=== PATIENT | male | born 1990 | race African-American/Black ===

== ENCOUNTER 2017-07-16 18:10 | Emergency (ER) | payer OTHER ==
[2017-07-16 18:24] VITALS: BP 153/76
--- NOTE | 2017-07-16 18:48 | XRAY Preliminary Report ---
Exam: XR FINGER(S) RT IMPRESSION: Normal fourth digit radiography. [facility] SITE ID: [id number]
--- NOTE | 2017-07-16 18:50 | ED Physician Documentation ---
PD HPI UPPER EXT INJURY - Stated complaint Stated Complaint: R RING FINGER INJ - Chief complaint Chief Complaint: Ext Problem - History obtained from History obtained from: Patient - History of Present Illness Location: Finger (right ring finger) Type of injury: Twist (jammed from ball) Timing - details: Abrupt onset, Still present Associated symptoms: Swelling, Discolored (some bruising around base of finger) . No: Weakness, Numbness Similar symptoms before: Has not had sx before Recently seen: Not recently seen Review of Systems Skin: denies: Abrasion (s), Laceration (s) Neurologic: denies: Focal weakness, Numbness PD PAST MEDICAL HISTORY - Past Medical History Past Medical History: No Musculoskeletal: None - Past Surgical History Past Surgical History: No - Present Medications Home Medications: Ambulatory Orders Medication Instructions Recorded Confirmed No Known Home Medications [No 07/16/17 07/16/17 Known Home Medications] - Allergies Allergies/Adverse Reactions: Allergies Allergy/AdvReac Type Severity Reaction Status Date / Time No Known Drug Allergies Allergy Verified 07/16/17 18:24 - Social History Does the pt smoke?: No Smoking Status: Never smoker Does the pt drink ETOH?: No Does the pt have substance abuse?: No - Immunizations Immunizations are current?: Yes - POLST Patient has POLST: No PD ED PE NORMAL - Vitals Vital signs reviewed: Yes - General General: Alert and oriented X 3, No acute distress, Well developed/nourished - Derm Derm: Normal color, Warm and dry, No rash - Extremities Extremities: Other (right ring finger with some swelling and mild ecchymosis volar base mear MCP. Able to flex finger against resistance. Normal color and cap refill in fingertip.) - Neuro Neuro: No motor deficit, No sensory deficit Results - Vitals Vitals: Oxygen O2 Source Room air - Rads (name of study) finger Radiology: Prelim report reviewed (no fracture) PD MEDICAL DECISION MAKING - ED course Complexity details: reviewed results, considered differential (normal xray but finger swelling and some bruising which would indicate torn ligament at MCP volar. ), d/w patient Departure - Departure Disposition: 01 Home, Self Care Clinical Impression: Finger sprain Qualifiers: Encounter type: initial encounter Finger: ring finger Sprain of finger site: interphalangeal joint Laterality: right Qualified Code(s): S63.634A - Sprain of interphalangeal joint of right ring finger, initial encounter Condition: Stable Record reviewed to determine appropriate education?: Yes Instructions: ED Sprain Finger Comments: Splint or sushma tape for the finger during activity for the next 3 weeks for healing time. With the swelling and bruising, I presume you partly tore ligament at the joint and this can take a while to heal. Elevate and rest the hand the next couple of days. Minimal use of it for couple of days to reduce swelling. Tylenol or ibuprofen if needed for pain. Some ibuprofen to 3 times a day might help the inflammation a little bit as well. Follow-up with your primary care in about a week for recheck of it. Discharge Date/Time: 07/16/17 19:43
--- NOTE | 2017-07-16 18:51 | XRAY Report ---
EXAM: RIGHT FOURTH DIGIT RADIOGRAPHY EXAM DATE: 07/16/2017 06:35 PM. CLINICAL HISTORY: Jammed playing ball. Pain and swelling. COMPARISON: None. TECHNIQUE: 3 views. FINDINGS: Bones: Normal. No fracture or bone lesion. Joints: Normal. No subluxations. Soft Tissues: Normal. No soft tissue swelling. IMPRESSION: Normal fourth digit radiography. [facility] Referring Provider Line: [phone] SITE ID: [id number]
== END 2017-07-16 19:43 | disposition home or self-care (01) ==
LOC: ED 18:10
DX: S63.634A Sprain of interphalangeal joint of right ring finger, initial encounter (principal); W21.05XA Struck by basketball, initial encounter; Y93.67 Activity, basketball
CPT/HCPCS: 73140; 99283

== ENCOUNTER 2017-08-20 12:16 | Emergency (ER) | payer OTHER ==
--- NOTE | 2017-08-20 14:38 | ED Physician Documentation ---
PD HPI UPPER EXT INJURY - Stated complaint Stated Complaint: LEFT FINGER LAC - Chief complaint Chief Complaint: Laceration - History obtained from History obtained from: Patient - History of Present Illness Location: Right, Hand Type of injury: Laceration Where injury occurred: Home Timing - onset: Today Similar symptoms before: Has not had sx before - Additonal information Additional information: The patient is an otherwise healthy 27-year-old male who cut his right hand at the base of his index finger this morning on a fur operator blade. He is right hand dominant. His vaccinations are up-to-date. Review of Systems Constitutional: denies: Fever Skin: reports: Laceration (s) Neurologic: denies: Focal weakness, Numbness PD PAST MEDICAL HISTORY - Past Medical History Past Medical History: No Endocrine/Autoimmune: None Musculoskeletal: None - Past Surgical History Past Surgical History: No - Present Medications Home Medications: Ambulatory Orders Medication Instructions Recorded Confirmed No Known Home Medications [No 07/16/17 07/16/17 Known Home Medications] - Allergies Allergies/Adverse Reactions: Allergies Allergy/AdvReac Type Severity Reaction Status Date / Time No Known Drug Allergies Allergy Verified 08/20/17 12:31 - Social History Does the pt smoke?: No Smoking Status: Never smoker Does the pt drink ETOH?: No Does the pt have substance abuse?: No - Immunizations Immunizations are current?: Yes - POLST Patient has POLST: No PD ED PE NORMAL - Vitals Vital signs reviewed: Yes (Initially hypertensive, but normalized on repeat evaluation.) - General General: Alert and oriented X 3, Well developed/nourished - HEENT HEENT: Atraumatic - Respiratory Respiratory: No respiratory distress - Derm Derm: No rash - Extremities Extremities: Other (There is a 1 cm laceration on the radial aspect of the right hand, near the base of the index finger. He has full flexion and extension of the DIP, PIP, and MCP joint of the index finger, against resistance. Distal neurovascular is intact.) - Neuro Neuro: Alert and oriented X 3, No motor deficit, No sensory deficit Results - Vitals Vitals: Oxygen O2 Source Room air Procedures - Laceration (location) right hand Length in cm: 1 Wound type: Linear Neurovascular status: Sensory intact, Motor intact, Vascular intact Tendon involvement: Tendon intact Wound Preparation: Hibiclens, Irrigated copiously NS Skin layer closure: Dermabond Other: Patient tolerated well, No complications, Neurovascular intact, Tetanus UTD Complexity: Simple PD MEDICAL DECISION MAKING - ED course Complexity details: considered differential, d/w patient ED course: The patient's presentation is significant for small laceration of the right hand at the base of the index finger. The wound edges are well opposed, and in an area that does not have a lot of tension. After thoroughly cleaning the wound, it was repaired with Dermabond. I discussed with him the expected course of healing, as well as potentially worrisome signs or symptoms that should prompt reevaluation. Departure - Departure Disposition: 01 Home, Self Care Clinical Impression: Laceration Condition: Stable Instructions: ED Laceration Ext Skin Glue Follow-Up: Jeffy Vanessa MD [Primary Care Provider] - Comments: Keep the wound clean. Follow up with your primary physician, or return to the emergency department if you develop any sign of infection, or otherwise worsening symptoms. Discharge Date/Time: 08/20/17 14:46
[2017-08-20 14:48] VITALS: BP 122/68
== END 2017-08-20 14:46 | disposition home or self-care (01) ==
LOC: ED 12:16
DX: S61.411A Laceration without foreign body of right hand, initial encounter (principal); W29.0XXA Contact with powered kitchen appliance, initial encounter; Y92.019 Unspecified place in single-family (private) house as the place of occurrence of the external cause
CPT/HCPCS: 12001; 99283

== ENCOUNTER 2017-09-27 14:45 | Outpatient (CLI) | payer OTHER ==
--- NOTE | 2017-09-28 09:15 | MRI Report ---
EXAM: RIGHT HAND MRI WITHOUT CONTRAST EXAM DATE: 09/27/2017 03:31 PM. CLINICAL HISTORY: Pain in the right fingers, particularly the fourth PIP joint. Post basketball injur y one month ago. COMPARISON: X-ray 07/16/2017. TECHNIQUE: Multiplanar, multisequence T1-weighted and fluid-sensitive sequences of the hand without c ontrast. Other: None. FINDINGS: Bones: There is minimal subchondral edema involving the anterior margin of the adjacent ends of the m iddle and proximal phalanx of the fourth digit at the PIPJ. Cartilage: The articular cartilage is unremarkable. Ligaments: There is increased T2 signal involving and surrounding both the medial and lateral collate ral ligament of the fourth PIPJ, suggesting a grade 1 sprain. The remaining collateral ligaments appe ar normal. Tendons: The flexor and extensor tendons are unremarkable. Musculature: No edema or fatty atrophy. Other: No joint effusions. The subcutaneous tissues are unremarkable. IMPRESSION: 1. Grade 1 sprain of the collateral ligaments of the fourth PIPJ. 2. Flexor and extensor tendon appear normal. [facility] MUSCULOSKELET[facility] SECTION Referring Provider Line: [phone] SITE ID: [id number]
== END 2017-09-27 14:46 | disposition home or self-care (01) ==
LOC: DI 14:45
PROVIDERS: ATTEND Student in an Organized Health Care Education/Training Program
DX: S63.634A Sprain of interphalangeal joint of right ring finger, initial encounter (principal)

== ENCOUNTER 2017-12-08 16:39 | Emergency (ER) | payer OTHER ==
[2017-12-08 16:52] VITALS: BP 165/80
--- NOTE | 2017-12-08 16:56 | ED Physician Documentation ---
History of Present Illness - Stated complaint Stated Complaint: BP ISSUES - Chief complaint Chief Complaint: Cardiac - History obtained from History obtained from: Patient - History of Present Illness Timing: Other (27-year-old gentleman with no significant past medical history. His blood pressure is usually normal, although noting that review of the records show he has had a couple ED visits with pressures of about 150/80. Over the last couple days he has had some blurry vision and is not sleeping well. He denies polyuria or polydipsia. He saw his Hiro and his blood pressure was checked a few times and was in the range of 150/80 and was referred to the emergency department. He denies any chest pain or trouble breathing, no pedal edema.) Review of Systems Constitutional: reports: Fatigue (from poor sleep). denies: Weight Loss, Sweats Eyes: denies: Loss of vision, Decreased vision, Photophobia Nose: denies: Rhinorrhea / runny nose, Congestion Throat: reports: Sore throat Cardiac: denies: Chest pain / pressure, Palpitations Respiratory: denies: Dyspnea, Cough PD PAST MEDICAL HISTORY - Past Medical History Past Medical History: No Endocrine/Autoimmune: None Musculoskeletal: None - Past Surgical History Past Surgical History: No - Present Medications Home Medications: Ambulatory Orders Medication Instructions Recorded Confirmed No Known Home Medications [No 07/16/17 07/16/17 Known Home Medications] - Allergies Allergies/Adverse Reactions: Allergies Allergy/AdvReac Type Severity Reaction Status Date / Time No Known Drug Allergies Allergy Verified 08/20/17 12:31 - Social History Does the pt smoke?: No Smoking Status: Never smoker Does the pt drink ETOH?: No Does the pt have substance abuse?: No - Immunizations Immunizations are current?: Yes - POLST Patient has POLST: No PD ED PE NORMAL - Vitals Vital signs reviewed: Yes - General General: Alert and oriented X 3, No acute distress, Well developed/nourished - HEENT HEENT: PERRL, EOMI - Neck Neck: Supple, no meningeal sign, No bony TTP, No adenopathy - Cardiac Cardiac: RRR, No murmur - Respiratory Respiratory: No respiratory distress, Clear bilaterally - Abdomen Abdomen: Non tender, Non distended - Back Back: No CVA TTP, No spinal TTP - Derm Derm: Normal color, Warm and dry - Extremities Extremities: No edema, No calf tenderness / cord - Neuro Neuro: Alert and oriented X 3, belt loop maker 2-12 intact, Normal speech Eye Opening: Spontaneous Motor: Obeys Commands Verbal: Oriented GCS Score: 15 - Psych Psych: Normal mood, Normal affect Results - Vitals Vitals: Vital Signs - 24 hr 12/08/17 16:45 Temperature 37.1 C Heart Rate 69 Respiratory 16 Rate Blood Pressure 165/80 H O2 Saturation 100 Oxygen O2 Source Room air - EKG (time done) 1703 Rate: Rate (enter#) (71) Rhythm: NSR [place]: Normal Intervals: Normal SD QRS: Normal Ischemia: Normal ST segments - Labs Labs: Laboratory Tests 12/08/17 16:55 Sodium 136 Potassium 3.5 Chloride 103 Carbon Dioxide 26 Anion Gap 7.0 BUN 15 Creatinine 1.1 Estimated GFR (MDRD) 98 Glucose 125 H Calcium 8.9 Total Bilirubin 0.5 AST 20 ALT 21 Alkaline Phosphatase 43 Total Protein 6.9 Albumin 4.1 Globulin 2.8 Albumin/Globulin Ratio 1.5 Lipase 34 Departure - Departure Disposition: 01 Home, Self Care Clinical Impression: Elevated blood pressure reading without diagnosis of hypertension Condition: Good Record reviewed to determine appropriate education?: Yes Instructions: Blood Pressure Dc Comments: Call your doctor to arrange a follow-up appointment, make the next available appointment. In the interim, return anytime if worse or if new symptoms develop.
[2017-12-08 17:21] LABS: ALBUMIN 4.1 g/dL (3.2-5.5); ALBUMIN/GLOBULIN RATIO 1.5 (1.0-2.2); BILIRUBIN,TOTAL 0.5 mg/dL (0.2-1.0); CALCIUM 8.9 mg/dL (8.5-10.3); CREATININE 1.1 mg/dL (0.6-1.2); TOTAL PROTEIN 6.9 g/dL (6.7-8.2)
== END 2017-12-08 17:31 | disposition home or self-care (01) ==
LOC: ED 16:39
DX: R03.0 Elevated blood-pressure reading, without diagnosis of hypertension (principal); R94.31 Abnormal electrocardiogram [ECG] [EKG]
CPT/HCPCS: 36415; 80053; 83690; 93005; 99283

== ENCOUNTER 2018-02-28 11:17 | Outpatient (CLI) | payer OTHER | END 2018-02-28 11:18 | disposition home or self-care (01) | LOC: SC 11:17 | PROVIDERS: ATTEND Internal Medicine Pulmonary Disease | DX: G47.30 Sleep apnea, unspecified (principal); G47.10 Hypersomnia, unspecified; R06.83 Snoring | CPT/HCPCS: 99203; 99212 ==

== ENCOUNTER 2018-03-14 20:31 | Outpatient (CLI) | payer OTHER | END 2018-03-14 20:32 | disposition home or self-care (01) | LOC: SC 20:31 | PROVIDERS: ATTEND Internal Medicine Pulmonary Disease | DX: G47.33 Obstructive sleep apnea (adult) (pediatric) (principal) | CPT/HCPCS: 95810 ==